=== PATIENT | female | born 1970 | race Caucasian/White ===

== ENCOUNTER 2024-02-27 09:15 | Observation (INO) ==
[2024-02-27] MEDS ORDERED: ZOFRAN INJ 4 MG VIAL IVP PRN ×2 (09:17→16:33)
[2024-02-27] MEDS ORDERED: REGLAN INJ 10 MG VIAL IVP PRN (09:17)
[2024-02-27] MEDS ORDERED: BENADRYL INJ 50 MG VIAL IVP PRN (09:17)
[2024-02-27] MEDS ORDERED: BARHEMSYS INJ IVP PRN (09:17)
[2024-02-27] MEDS: NOZIN NASAL SANITIZER TP ONE (09:29)
[2024-02-27] MEDS: LR 1,000 ML IV 1,000 ML IV ONE ×2 (09:30→14:16)
[2024-02-27] MEDS: MARCAINE 0.25% INJ ONE (10:02)
[2024-02-27] MEDS: NS 100 ML IV 100 ML ONE (12:07)
[2024-02-27] MEDS: ANCEF VIAL 1 GRAM ONE (12:07)
[2024-02-27] MEDS: FENTANYL VIAL INJ 100 mcg ONE ×2 (12:11→14:12)
[2024-02-27] MEDS: VERSED ONE (12:11)
[2024-02-27] MEDS: PEPCID 20 MG VIAL ONE (12:14)
[2024-02-27] MEDS: QUELICIN (OR ANECTINE) ONE (12:14)
[2024-02-27] MEDS: ZEMURON 100 MG VIAL ONE (12:14)
[2024-02-27] MEDS: DIPRIVAN VIAL 20 ML ONE (12:14)
[2024-02-27] MEDS ORDERED: SUPRANE ONE (12:15)
[2024-02-27] MEDS: XYLOCAINE 1% and EPINEPHRINE 1:100,000 ONE (12:37)
[2024-02-27] MEDS: HYDROGEN PEROXIDE 3% ONE (12:44)
[2024-02-27] MEDS: BRIDION ONE (14:13)
[2024-02-27] MEDS: DILAUDID INJ ONE (14:40)
[2024-02-27] MEDS: DILAUDID INJ IVP PRN (14:40)
[2024-02-27] MEDS: PERCOCET TAB 5/325 MG ONE (15:09)
[2024-02-27] MEDS: ZOFRAN ODT ONE (15:10)
[2024-02-27 17:22] VITALS: BMI 51.7
--- NOTE | 2024-02-27 17:26 | RAD ---
EXAM:CHEST, 1 VIEWHISTORY:Shortness of breath;COMPARISON:12/24/2023FINDINGS:The trachea is midline. The cardiac silhouette is unremarkable . The lungs are clear without focal infiltrate or effusion. The bony thorax is unremarkable.IMPRESSION:No acute cardiopulmonary disease.THIS IS AN ELECTRONICALLY VERIFIED FINAL REPORT02/27/2024 5:23 PM - Electronically signed by Carlos Burnett MD
[2024-02-27] MEDS: ZOFRAN INJ 4 MG VIAL ONE (17:27)
[2024-02-27] MEDS: DUONEB 0.5 MG/3 MG (3 mL) NEB ONE (17:28)
[2024-02-27 17:54] LABS: HEMATOCRIT 37.5 % (36.0-47.0)
[2024-02-27 18:00] LABS: ABG BASE EXCESS 1.8 mmol/L (-2.0-2.0); ABG HCO3 29.8 mmol/L (22-26)
[2024-02-27 18:01] LABS: ABG ALLEN TEST POS
[2024-02-27] MEDS: COLACE CAP 100 MG PO SCH (20:07)
[2024-02-27] MEDS: NOZIN NASAL SANITIZER TP SCH (20:09)
[2024-02-27] MEDS: PERCOCET TAB 5/325 MG PO PRN (23:51)
[2024-02-28 05:39] LABS: BLOOD UREA NITROGEN 11 mg/dL (7-18); CALCIUM 8.7 mg/dL (8.5-10.1); CARBON DIOXIDE 35.9 mmol/L (21-32); CHLORIDE 104 mmol/L (98-107); CREATININE 0.64 mg/dL (0.55-1.02); GLUCOSE 107 mg/dL (65-99); POTASSIUM 4.5 mmol/L (3.5-5.1); SODIUM 141 mmol/L (136-145); eGFR NON BLACK RACES > 60 (>60)
--- NOTE | 2024-02-28 06:46 | NOTE.SOAP ---
Soap Note Note for Day of Date of Exam: 02/28/24 Subjective Data Subjective Data: Patient is POD1 s/p Wound debridement, Abductor Hallucis Muscle Flap and split thickness skin graft. She was admitted due to hypoxemia. She was sleepy and not really alert this morning. Nurses said she slept through the night and tried to take her off oxygen, unfortunately O2 stat kept dropping. Her vitals have seem to stabilize. She denies any pain to the surgical site. Denies any other symptoms at this time Objective Data Objective Data: Skin harvest site is clean with no erythema or hematoma formation. The xeroform left intact. Other dressings and splint left in tact She's able to move toes Neurovascular status intact Assessment Assessment: - Respiratory Acidosis - Hypoxemia - Nonhealing ulcers, right foot and leg s/p R foot and leg wound debridements, abductor hallucis flap, split thickness skin graft (DOS: 02/27/24) Plan Plan: Patient seen this am; doing okay. She will continue to be monitored for Hypoxemia. Still on nasal cannula down to 2L. Dressings c/d/i without strikethrough. Aquacell dressing on proximal calf was changed this am. Dressings do not need to be changed throughout her stay. She is NWB to the E. Restart Eliquis today. Pain medication on schedule. Will follow
[2024-02-28] MEDS: ELIQUIS PO SCH (08:32)
[2024-02-28] MEDS ORDERED: LOVENOX INJ 40 MG SYR SC SCH (09:00)
[2024-02-28] MEDS: TYLENOL 325 MG TAB PO PRN (09:29)
[2024-02-29 06:01] LABS: BASOPHILS % (AUTO) 0.5 % (0.2-1.0); EOSINOPHILS # (AUTO) 0.1 x10^3/uL (0.0-0.2); EOSINOPHILS % (AUTO) 1.3 % (0.9-2.9); HEMATOCRIT 33.4 % (36.0-47.0); HEMOGLOBIN 10.7 g/dL (12.0-16.0); LYMPHOCYTES # (AUTO) 1.4 X10^3/uL (1.3-2.9); LYMPHOCYTES % (AUTO) 21.8 % (21.0-51.0); MEAN CORPUSCULAR HEMOGLOBIN 27.9 pg (27.0-34.0); MEAN CORPUSCULAR HGB CONC 31.9 g/dL (33.0-35.0); MEAN CORPUSCULAR VOLUME 87.5 fL (80.0-100.0); MEAN PLATELET VOLUME 7.7 fL (7.4-11.0); MONOCYTES # (AUTO) 0.7 x10^3/uL (0.3-0.8); MONOCYTES % (AUTO) 10.5 % (0.0-13.0); NEUTROPHILS # (AUTO) 4.1 x10^3/uL (2.2-4.8); NEUTROPHILS % (AUTO) 65.9 % (42.0-75.0); PLATELET COUNT 230 X10^3/uL (150.0-450.0); RED BLOOD COUNT 3.82 X10^6/uL (3.5-5.4); RED CELL DISTRIBUTION WIDTH 14.9 % (11.6-16.5); WHITE BLOOD COUNT 6.3 X10^3/uL (3.6-10.0)
[2024-02-29 06:17] LABS: ALANINE AMINOTRANSFERASE 30 Units/L (12-78); ALBUMIN 2.9 g/dL (3.4-5.0); ALKALINE PHOSPHATASE 80 Units/L (46-116); ASPARTATE AMINO TRANSFERASE 39 Units/L (15-37); BLOOD UREA NITROGEN 9 mg/dL (7-18); CALCIUM 8.9 mg/dL (8.5-10.1); CARBON DIOXIDE 39.1 mmol/L (21-32); CHLORIDE 101 mmol/L (98-107); COR CA(FOR HYPOALB) 9.8 mg/dL (8.5-10.1); CREATININE 0.55 mg/dL (0.55-1.02); GLUCOSE 104 mg/dL (65-99); POTASSIUM 4.4 mmol/L (3.5-5.1); SODIUM 140 mmol/L (136-145); TOTAL PROTEIN 7.4 g/dL (6.4-8.2); eGFR NON BLACK RACES > 60 (>60)
--- NOTE | 2024-02-29 08:26 | NOTE.SOAP ---
Soap Note Note for Day of Date of Exam: 02/29/24 Subjective Data Subjective Data: Patient is POD2 s/p Wound debridement, Abductor Hallucis Muscle Flap and split thickness skin graft. Still on nasal cannula at 2L. She seems to be feeling better. Her vitals have seem to stabilize. She is sore to the surgical site but pain is controlled. Denies any other symptoms at this time Objective Data Objective Data: Dressings c/d/i She's able to move toes Neurovascular status intact Assessment Assessment: - Respiratory Acidosis - Hypoxemia - Nonhealing ulcers, right foot and leg s/p R foot and leg wound debridements, abductor hallucis flap, split thickness skin graft (DOS: 02/27/24) Plan Plan: Patient seen this am; doing okay. She will continue to be monitored for Hypoxemia. Still on nasal cannula down to 2L. Ordered D-Dimer and CTA yesterday to r/o pulmonary embolism considering her history of venous insufficiency. Dressings c/d/i without strikethrough.She is NWB to the RLE. Continue eliquis. Pain medication on schedule. She will be going to rehab upon discharge. Will follow
[2024-02-29] MEDS: VANCOMYCIN IV *PREMIX 1 G/200 ML BAG 1 G/200 ML PIGGYBACK IV SCH (10:16)
[2024-02-29] MEDS: PHARMACY CONSULT - VANCOMYCIN XX SCH (10:29)
[2024-02-29] MEDS: OMNIPAQUE 350 mg/mL 100 mL BTL 100 ML ONE (10:31)
--- NOTE | 2024-02-29 11:37 | CT ---
EXAM:CTA, CHESTHISTORY:Shortness of breathTECHNIQUE:Axial postcontrast images with coronal and sagittal reformats. Three-dimensional maximum intensity projection images were obtained and evaluated. Dose reduction techniques were used with MA/kv adjusted for body size.COMPARISON:NoneFINDINGS:There is no evidence for acute pulmonary thromboembolic disease. Examination of the mediastinum demonstrated no evidence for mediastinal masses, and large mediastinal or enlarged hilar adenopathy or significant aortic abnormality. Thyromegaly is present. This could be better evaluated sonographically on a nonemergent basis. No pleural effusions are identified. No chest wall or axillary abnormalities identified. Those portions of the upper abdominal organs visualized appeared within normal limits to the limitations of early arterial injection timing. Examination of the lung trejo demonstrated no evidence for parenchymal masses, alveolar infiltrates, areas of consolidation, bronchiectasis, or significant peribronchial thickening. Scattered areas of subsegmental atelectasis are present. No significant pulmonary nodules are identified.IMPRESSION:No evidence for acute pulmonary thromboembolic diseaseLungs clearThyromegaly which could be better evaluated sonographically. This could be performed on a nonemergent basis.THIS IS AN ELECTRONICALLY VERIFIED FINAL REPORT02/29/2024 11:34 AM - Electronically signed by Liam Padilla MD
[2024-02-29 12:08] VITALS: PULSE 83; TEMP 97.9
[2024-02-29] MEDS: MILK OF MAGNESIA PO PRN (14:11)
[2024-02-29 15:15] VITALS: BP 134/75; RESP 18; O2SAT 98
[2024-03-01] MEDS ORDERED: PHARMACY COMMENT IV NR (05:00)
== END 2024-02-29 16:50 ==
LOC: MED/SURG 09:15 → SURG1 09:15
PROVIDERS: ADMIT Obstetrics & Gynecology Obstetrics; ATTEND Obstetrics & Gynecology Obstetrics
PROC: DEBRIDE (2024-02-27 13:15)
PROC: SKINGR2 (2024-02-27 13:15)
DX: I10 Essential (primary) hypertension; R06.02 Shortness of breath; L97.313 Non-pressure chronic ulcer of right ankle with necrosis of muscle; E11.42 Type 2 diabetes mellitus with diabetic polyneuropathy; R09.02 Hypoxemia; E66.2 Morbid (severe) obesity with alveolar hypoventilation; L89.893 Pressure ulcer of other site, stage 3; B96.4 Proteus (mirabilis) (morganii) as the cause of diseases classified elsewhere; Z01.810 Encounter for preprocedural cardiovascular examination; B96.89 Other specified bacterial agents as the cause of diseases classified elsewhere; Z79.01 Long term (current) use of anticoagulants; E11.65 Type 2 diabetes mellitus with hyperglycemia; R26.89 Other abnormalities of gait and mobility; Z68.43 Body mass index [BMI] 50.0-59.9, adult